=== PATIENT | male | born 1985 | race African-American/Black ===

== ENCOUNTER 2020-05-27 11:51 | Emergency (ER) | payer BC ==
[~2020-05-27] VITALS: Ht 177.8 cm; Wt 77.1 kg
[~2020-05-27 11:51] MED LIST: NOHOMEMEDICATIONS
[2020-05-27 11:58] VITALS: BP 114/69
[2020-05-27] MEDS ORDERED: FLEXERIL PO (12:03)
[2020-05-27] MEDS ORDERED: HYDROCODON-ACE1 EAC7 PO (12:03)
== END 2020-05-27 12:15 | disposition home or self-care (01) ==
LOC: M.ERS 11:51
DX: S39.012A Strain of muscle, fascia and tendon of lower back, initial encounter (principal); J45.909 Unspecified asthma, uncomplicated; X50.1XXA Overexertion from prolonged static or awkward postures, initial encounter; Y93.89 Activity, other specified; Y92.89 Other specified places as the place of occurrence of the external cause; Y99.8 Other external cause status